=== PATIENT | female | born 1975 | race African-American/Black ===

== ENCOUNTER 2022-11-19 22:02 | Emergency (ER) | payer SELFPAY ==
[2022-11-19 22:04] VITALS: BP 131/90; PULSE 81; RESP 18; TEMP 36.9; O2SAT 100; BMI 41.5
--- NOTE | 2022-11-19 22:29 | EDS_ITS ---
HPI History of Present Illness HPI Narrative: Patient presents with wound to her right lower leg that began 2 weeks ago. Patient states she got her leg caught in her couch 2 weeks ago and had an open wound over the anterior aspect of the distal right lower leg. Patient states she noted some increased swelling and redness from the wound over the past few days. Patient describes her pain as burning. Patient states she has been taking Tylenol which has been helping. Patient admits to some tingling around t he wound and ankle area. Patient denies any fevers or chills. Patient denies any discharge or drainage. Patient denies any weakness. Chief Complaint: Wound Informant: patient Occured/Mechanism Mechanism/Context: Yes blunt trauma Onset/Context/Timing Onset: Weeks (2) Context: Gradual Onset Timing: Continuous Quality of Pain: Burning Location: Right lower leg Worsened by: Nothing Relieved by: Tylenol Associated Symptoms Associated Symptoms: Positive for Parasthesia; Negative for Weakness or Loss of Funtion Narrative Tetanus Immunization: <5 years PFSH PFSH Medical History no medical history no medical history Home Medications clindamycin HCl 300 mg capsule (Cleocin HCl) 300 mg PO Q6H #40 CAPSULES 11/19/22 [Rx Last Taken Unknown] Allergy/AdvReac Type Severity Reaction Status Date / Time Penicillins Allergy Intermediate Swelling Verified 11/19/22 22:07 Surgical History (Updated 11/19/22 @ 22:[address] Betito Jenkins DO) Hx of cholecystectomy Hx of tonsillectomy Social History Smoking Status: Current every day smoker tobacco type: cigarettes ROS ROS ED Constitutional Constitutional ED: Denies chills or fever(s) Eyes Eyes: Denies blurry vision or change in vision ENT ENT ED: Denies rhinorrhea or sore throat Cardiovascular Cardiovascular: Denies chest pain or palpitations Respiratory/Chest Respiratory/Chest: Denies cough or dyspnea Gastrointestinal Gastrointestinal: Denies nausea or vomiting Genitourinary Genitourinary ED: Denies dysuria or hematuria Musculoskeletal Musculoskeletal: Denies back pain or neck pain Integumentary Denies abscess or rash Neurologic Neurologic: Reports paresthesias RLE; Denies headache(s) or weakness Allergic/Immunologic Allergic/Immunologic ED: Denies mouth swelling or urticaria EXAM Physical Exam Const Vital Signs: 11/19/22 22:04 Temperature 98.4 F Temperature Source Temporal Pulse Rate 81 Respiratory Rate 18 Blood Pressure 131/90 H Blood Pressure Mean 103 Pulse Ox 100 Oxygen Delivery Method Room Air Positive well nourished, well developed and obese General Appearance ED: well developed and NAD Nutritional Appearance: obese HEENT Reports moist mucous membranes Neck full ROM and supple Extremity Extremity Narrative: There is a healing open wound over the anterior aspect of the right lower leg. There is some surrounding erythema. There is some mild warmth. There is no discharge or drainage noted. There is some edema around the wound and ankle. Range of motion of the right ankle was somewhat limited secondary to pain. Sensation was intact to light touch in all digits. Capillary refill was less than 2 seconds in all digits. Pedal pulses are equal bilaterally. Neuro oriented x3, CN's II-XII intact bilaterally, moves all extremities and no sensory deficits noted Sensorium / Orientation: alert Motor Exam: strength 5/5 throughout Psych mental status grossly normal MDM MDM MDM Narrative Medical decision making narrative: Patient was advised that this appears to be a wound infection. Patient was given a dose of clindamycin here. Patient was given a prescription for clindamycin. Patient was instructed to keep the wound clean. Patient was instructed to apply triple antibiotic or Neosporin ointment to the wound twice daily. Patient was instructed to follow-up with her primary care physician in 5 to 7 days. Patient understood and was agreeable with the plan. All questions were answered. Discharge Plan Triage Chief Complaint: Wound ED Provider: Betito Jenkins Dx/Rx/DC Orders Clinical Impression: Open wound of right lower leg, Cellulitis of right anterior lower leg Instructions: ED Cellulitis, ED Wound Care Prescriptions: New clindamycin HCl [Cleocin HCl] 300 mg capsule 300 mg PO Q6H Qty: 40 0RF Primary Care Provider: Care Physician,No Primary Referrals: NOT,DEFINED [Non-Staff] - 5-7 Days Disposition Disposition: Home, Self Care
[2022-11-19] MEDS: Clindamycin HCl 150 MG Capsule 300 MG PO (22:59)
== END 2022-11-19 23:16 | disposition home or self-care (01) ==
PROVIDERS: Emergency Provider Emergency Medicine; Visit Provider Emergency Medicine
DX: S81.801A Unspecified open wound, right lower leg, initial encounter (principal); L03.115 Cellulitis of right lower limb; F17.210 Nicotine dependence, cigarettes, uncomplicated; X58.XXXA Exposure to other specified factors, initial encounter
CPT/HCPCS: 99283